=== PATIENT | male | born 1980 | race African-American/Black ===

== ENCOUNTER 2023-09-21 12:30 | Emergency (ER) | payer OTHER ==
[2023-09-21 13:03] VITALS: BP 137/96; PULSE 72; RESP 15; TEMP 97.9; BMI 24.4
[2023-09-21] MEDS ORDERED: IBUPROFEN 600 MG TABLET (FP) PO ONE ×2 (13:12→13:17)
== END 2023-09-21 14:10 | disposition home or self-care (01) ==
LOC: FER 12:30
DX: M54.50 Low back pain, unspecified (principal); S39.012A Strain of muscle, fascia and tendon of lower back, initial encounter; X58.XXXA Exposure to other specified factors, initial encounter
CPT/HCPCS: 76775-TC; 81003; 87086; 99284-25